=== PATIENT | female | born 1950 | race Caucasian/White ===

== ENCOUNTER 2016-11-09 14:08 | Inpatient (IN) | payer BC, OTHER ==
[~2016-11-09] VITALS: Ht 167.6 cm; Wt 91.0 kg
[~2016-11-09 14:08] MED LIST: DTR5 PO; GLC500 PO; HYDC25 PO
[2016-11-09] MEDS ORDERED: OXYCODONE HCL IR 5 MG TAB (IMMEDIATE RELEASE) PO STA ×2 (14:40→16:03)
--- NOTE | 2016-11-09 15:09 | DIAGNOSTIC IMAGING REPORT ---
RIGHT TIBIA AND FIBULA 2 VIEWS; RIGHT ANKLE 3 VIEWS CLINICAL HISTORY: Right ankle injury and pain. FINDINGS: AP and lateral views of the right tibia and fibula with AP, oblique, and lateral views of the right ankle are obtained. No prior studies are available for comparison at the time of dictation. The skeletal structures are osteopenic. A hinged right knee arthroplasty is in near anatomic alignment. No periprosthetic lucency is seen. There is a minimally distracted spiral fracture of the distal fibula. The fragments are distracted by approximately 2 mm. There is a horizontally oriented fracture through the medial malleolus. There is lateral dislocation of the talus at the tibiotalar joint. The joint space medially measures 6 mm. There is an associated ankle joint effusion, with significant soft tissue swelling around the ankle and in the lower calf. The proximal tibia and fibula are intact. There are dorsal and plantar calcaneal enthesophytes. Degenerative spurring is seen along the dorsal aspect of the tarsal bones. IMPRESSION: 1. Minimal distracted spiral fracture through the distal fibula. 2. There is a horizontally oriented fracture through the medial malleolus with lateral distraction of the talus at the tibiotalar joint. 3. Ankle joint effusion with surrounding soft tissue edema. 4. The proximal tibia and fibula are intact. Electronically signed by: Baudilio Fox M.D. 11/09/2016 3:07 PM Dictated Date/Time: 11/09/2016 3:03 PM
[2016-11-09] MEDS ORDERED: ASPI81TA28 PO (15:26)
[2016-11-09] MEDS ORDERED: HYDR25TA4 PO (15:26)
[2016-11-09] MEDS ORDERED: METF-383 PO (15:26)
[2016-11-09] MEDS ORDERED: GLIM1TAB2 PO (15:26)
--- NOTE | 2016-11-09 16:06 | EMERGENCY ROOM VISIT NOTE ---
ED Visit Note First contact with patient: 14:20 I have seen and examined this patient with Luz Mckenna and generally agree with the treatment plan as discussed. Current/Historical Medications Scheduled Aspirin (Aspirin Ec), 81 MG PO DAILY Glimepiride (Glimepiride), 1 MG PO DAILY Hydrochlorothiazide (Hctz), 25 MG PO DAILY Lisinopril (Zestril), 20 MG PO DAILY Metformin Hcl (Glucophage), 850 MG PO TID Allergies Coded Allergies: Codeine (Verified Adverse Reaction, Intermediate, Nausea/Upset Stomach, ) Vital Signs Date Time Temp Pulse Resp B/P Pulse Ox O2 Delivery O2 Flow Rate FiO2 11/09/16 14:23 36.8 86 18 184/86 96 Room Air Medications Administered Medications (Trade) Dose Ordered Sig/Jackie Route Start Time Stop Time Status Last Admin Dose Admin Oxycodone HCl (Roxicodone Immediate Rel Tab) 5 mg NOW STAT PO 11/09/16 14:40 11/09/16 14:41 DC 11/09/16 15:06 5 MG Departure Information Referrals India Gaston M.D. (PCP) Patient Instructions My [facility]
[2016-11-09] MEDS ORDERED: DiphenhydrAMINE HCL 50 MG/ML VIAL IV PRN (16:30)
[2016-11-09] MEDS ORDERED: ZOLPIDEM TARTRATE 5 MG TAB PO PRN (16:30)
--- NOTE | 2016-11-09 16:32 | EMERGENCY ROOM VISIT NOTE ---
History First contact with patient: 14:20 Chief Complaint: ANKLE PAIN Stated Complaint: FALL/ANKLE PAIN History of Present Illness The patient is a 66 year old female who presents to the Emergency Room via BLS with complaints of right ankle pain after a fall. The patient reports that she was walking up steps and tried to turn around to go back down the steps, when she tripped and fell, injuring her right ankle. She denies any other injuries and states she did not hit her head. She complains of pain only in the right ankle, which she rates a 6/10. She has not taken any medication for the pain. She is not able to bear weight on the ankle. She denies any previous injury to this ankle. She has had knee replacements performed by [facility]. She denies any numbness or weakness of the lower extremities. Review of Systems A complete 6 point review of systems was reviewed with the patient with pertinent positives and negatives as per history of present illness. All else were negative. Social History Smoking Status: Never Smoker Current/Historical Medications Scheduled Aspirin (Aspirin Ec), 81 MG PO DAILY Glimepiride (Glimepiride), 1 MG PO DAILY Hydrochlorothiazide (Hctz), 25 MG PO DAILY Lisinopril (Zestril), 20 MG PO DAILY Metformin Hcl (Glucophage), 850 MG PO TID Allergies Coded Allergies: Codeine (Verified Adverse Reaction, Intermediate, Nausea/Upset Stomach, ) Physical Exam Vital Signs Date Time Temp Pulse Resp B/P Pulse Ox O2 Delivery O2 Flow Rate FiO2 11/09/16 16:10 73 18 173/107 97 Room Air 11/09/16 14:23 36.8 86 18 184/86 96 Room Air Pain Rating (0-10): 7.0 Physical Exam VITALS: Vitals are noted on the nurse's note and reviewed by myself. Vital signs stable. GENERAL: This is a 66-year-old female, in no acute distress, nondiaphoretic, well-developed well-nourished. SKIN: Capillary reflex less than 2 seconds. HEART: Regular rate and rhythm without murmurs gallops or rubs. LUNGS: Clear to auscultation bilaterally without wheezes, rales or rhonchi. No retractions or accessory muscle use. MUSCULOSKELETAL: There is a moderate amount of edema and ecchymosis over the medial and lateral aspects of the right ankle. Ankle significantly tender to palpation. There is mild tenderness to palpation of the proximal tibia/fibula. Dorsalis pedis pulse is intact. Patient is able to move all toes without difficulty. No tenderness of the foot or knee. NEURO: Patient was alert and oriented to person place and time. Normal sensation to light and sharp touch. Medical Decision & Procedures ER Provider Diagnostic Interpretation: RIGHT TIBIA AND FIBULA 2 VIEWS; RIGHT ANKLE 3 VIEWS CLINICAL HISTORY: Right ankle injury and pain. FINDINGS: AP and lateral views of the right tibia and fibula with AP, oblique, and lateral views of the right ankle are obtained. No prior studies are available for comparison at the time of dictation. The skeletal structures are osteopenic. A hinged right knee arthroplasty is in near anatomic alignment. No periprosthetic lucency is seen. There is a minimally distracted spiral fracture of the distal fibula. The fragments are distracted by approximately 2 mm. There is a horizontally oriented fracture through the medial malleolus. There is lateral dislocation of the talus at the tibiotalar joint. The joint space medially measures 6 mm. There is an associated ankle joint effusion, with significant soft tissue swelling around the ankle and in the lower calf. The proximal tibia and fibula are intact. There are dorsal and plantar calcaneal enthesophytes. Degenerative spurring is seen along the dorsal aspect of the tarsal bones. IMPRESSION: 1. Minimal distracted spiral fracture through the distal fibula. 2. There is a horizontally oriented fracture through the medial malleolus with lateral distraction of the talus at the tibiotalar joint. 3. Ankle joint effusion with surrounding soft tissue edema. 4. The proximal tibia and fibula are intact. Medications Administered Medications (Trade) Dose Ordered Sig/Jackie Route Start Time Stop Time Status Last Admin Dose Admin Oxycodone HCl (Roxicodone Immediate Rel Tab) 5 mg NOW STAT PO 11/09/16 14:40 11/09/16 14:41 DC 11/09/16 15:06 5 MG Oxycodone HCl (Roxicodone Immediate Rel Tab) 5 mg NOW STAT PO 11/09/16 16:03 11/09/16 16:04 DC 11/09/16 16:10 5 MG Medical Decision Differential diagnosis includes ankle fracture, sprain, contusion, among others. The patient was evaluated as above. She was given 5 mg OxyIR for pain. X-ray of the right ankle as well as the right tibia/fibula were performed and revealed a right ankle fracture as described above. Case was discussed with Roberto Jason PA-C with [facility]. He recommended placing the patient in an Ortho-Glass splint. He did feel that she could be discharged home if she felt stable enough to do so. I spoke with the patient, who did not feel that she would be able to go home due to this injury. She was on a split- level house and states that her would not be able to help her walk around. Case was again discussed with Roberto, who agreed to evaluate the patient for admission. The patient was independently evaluated by Dr. Harris, ED attending physician , who agreed with my assessment and treatment plan. Impression Primary Impression: Ankle fracture Departure Information Referrals India Gaston M.D. (PCP) Patient Instructions My [facility] Problem Qualifiers Primary Impression: Ankle fracture Encounter type: initial encounter Fracture type: closed Laterality: right Qualified Codes: S82.891A - Other fracture of right lower leg, initial encounter for closed fracture
--- NOTE | 2016-11-09 16:38 | HISTORY & PHYSICAL EXAMINATION ---
DATE OF ADMISSION: 11/09/2016 REASON FOR ADMISSION: Right ankle fracture. HISTORY OF PRESENT ILLNESS: The patient is a 66-year-old white female who states that she was coming down some steps earlier in the day and ended up having her missed step with her right ankle and it went under her full weight and she fell. She had immediate pain in the right ankle and was unable to bear weight on it. She was brought to the Emergency Room where she was seen by the staff. X-rays were taken and it was found that she had a bimalleolar ankle fracture of the right ankle. The extremity was put in a posterior splint with a stirrup; however, the patient was having difficulty with pain and ambulation. After discussing with the family, their house has multiple stairs and is problematic for them to go home and wait for the fracture to be fixed later next week. We will now admit her for further orthopedic care and plan for ORIF tomorrow with Dr. Lagos. PAST MEDICAL HISTORY: Hypertension, diabetes mellitus type 2. Denies tuberculosis, hepatitis, COPD, and rheumatic fever. PAST SURGICAL HISTORY: She has had right and left knee total knee replacements in the past. FAMILY HISTORY: Question of CAD with the patient's father with possible [place]. SOCIAL HISTORY: She is . She does not use tobacco or alcohol. MEDICATIONS: Aspirin 81 mg p.o. daily, glimepiride 1 mg p.o. daily, hydrochlorothiazide 25 mg p.o. daily, lisinopril 20 mg p.o. daily, and metformin 850 mg p.o. t.i.d. ALLERGIES: CODEINE. REVIEW OF SYSTEMS: No recent fevers, chills, night sweats, unexplained weight loss or weight gain. No flu or cold-like symptoms. No increased cough or sputum production. No increased shortness of breath on exertion or at rest. No chest pain, chest pressure, irregular heartbeat. No abdominal pain and no nausea, vomiting or diarrhea. No hematemesis, melena, hematochezia. The patient has a history of urinary tract infections in the past with concurrent yeast infections due to antibiotic use, nothing recently. Denies any history of CVA, TIA, and seizure disorder. PHYSICAL EXAMINATION: VITAL SIGNS: On admission, temperature 36.8, pulse 86, respirations 18, BP 184/86, pulse ox 96 on room air. GENERAL: The patient is a well-developed, well-nourished white female who is alert and oriented x3 and in no acute distress, pleasant and cooperative. SKIN: Warm and dry. Turgor is good. HEENT: Head is normocephalic, atraumatic. There is no scleral icterus or injection. Nasal airway is patent. Oral mucosa is pink and moist. NECK: Supple. HEART: Regular rate and rhythm. LUNGS: Clear to auscultation. ABDOMEN: Soft, mildly obese and nontender. Bowel sounds are present and active x4. GENITALIA AND RECTAL: Not performed at this time. EXTREMITIES: On examination of the patient's right lower extremity, there were just about in the process of putting on a splint. At the time of my entering the room, she has some mild swelling of the right ankle with no open areas noted. No bleeding and is very tender over both the medial and lateral aspect of the ankle. She has good sensation in her toes and is able to move the toes quite well without any overt pain. The right knee has a well-healed scar from her previous TKA and is nontender on palpation. She is able to do a straight leg raise and is able to help raise her leg up to help then put the splint on. She has no pain in knee right now, no pain in the right hip. She denies discomfort in the left lower extremity and has good range of motion of left hip, knee and ankle. Upper extremities are essentially within normal limits with range of motion actively and passively and the distal pulses are equal bilaterally of the upper extremities. Denies neck pain on palpation. Denies any thoracic or low back pain. NEUROLOGIC: The patient is alert and oriented x3. Sensation is intact to the right lower extremity as is the left and the bilateral upper extremities. DIAGNOSIS: Bimalleolar ankle fracture, right ankle. PLAN: The patient will be added on to the operating room schedule tomorrow for ORIF of her right ankle. We will plan on consulting [facility] for preoperative medical clearance and postoperative medical coverage.
[2016-11-09 16:46] VITALS: O2SAT 97; Ht 167.6 cm; Wt 91.0 kg
[2016-11-09] MEDS ORDERED: GLUCAGON FOR INJ 1 MG VIAL SQ PRN (17:00)
[2016-11-09] MEDS ORDERED: GLUCOSE 10 TABS/TUBE PO PRN (17:00)
[2016-11-09] MEDS ORDERED: GLUCOSE 40% GEL 15 GM TUBE PO PRN (17:00)
[2016-11-09] MEDS ORDERED: DEXTROSE 50% 50 ML SYR IV PRN (17:00)
[2016-11-09 17:26] LABS: HEMATOCRIT 38.5 % (37-47); MEAN CELL VOLUME 85.2 fL (80-100); MEAN PLATELET VOLUME 10.1 fL (7.4-10.4); PLATELET COUNT 281 K/uL (130-400); RED BLOOD COUNT 4.52 M/uL (4.2-5.4); WHITE BLOOD COUNT 15.02 K/uL (4.8-10.8)
[2016-11-09 17:30] VITALS: BP 188/86; PULSE 70; TEMP 36.9; O2SAT 97
[2016-11-09 17:43] LABS: BUN/CREATININE RATIO 16.9 (10-20); CALCIUM 9.4 mg/dl (8.5-10.1); CREATININE 0.99 mg/dl (0.60-1.20); POTASSIUM 3.8 mmol/L (3.5-5.1)
[2016-11-09] MEDS ORDERED: METFORMIN HCL 850 MG TAB PO SCH (17:45)
[2016-11-09] MEDS ORDERED: HydrALAZINE HCL 20 MG/ML VIAL IV. PRN (19:00)
--- NOTE | 2016-11-09 19:27 | Medical Consult ---
Consultation Date of Consultation: Nov 09, 2016. Attending Physician: Faisal Lagos D.O. Reason for Consultation: Preop evaluation/Medical management History of Present Illness Patient is a pleasant 66 y/o female, with PMHx of HTN and DM, who presented to the ED this afternoon because of right ankle pain. Patient was coming down a set of stairs, missed the step, and fell onto her right ankle. X-ray of ankle shows bimalleolar right ankle fracture. Patient is scheduled to undergo ORIF to right ankle on 11/10. Currently, pain is well controlled. She is able to ambulate and walk up flights of stairs without any SOB. Patient denies any cardiac history, such as CAD, UT, or arrhythmias. Denies history of TIA/CVA or DVT/PE. Patient has underwent surgeries in the past without any complications. Patient denies any fever, chills, sweats, lightheadedness, dizziness, vision changes, CP, palpitations, edema, SOB, wheezing, cough, abdominal pain, nausea, vomiting, diarrhea, urinary symptoms, melena, numbness/tingling, weakness, anxiety/depression, active bleeding, or new skin discoloration/changes. Past Medical/Surgical History Medical: 1. HTN 2. DM Surgical: 1. Cholecystectomy 2. Bilateral total knee replacements Family History Father- [place] Social History Smoking Status: Never Smoker Alcohol Use: occasionally Marital Status: Housing Status: lives with family Allergies Coded Allergies: Codeine (Verified Adverse Reaction, Intermediate, Nausea/Upset Stomach, ) Current Inpatient Medications Current Inpatient Medications Medications (Trade) Dose Ordered Sig/Jackie Route Start Time Stop Time Status Last Admin Dose Admin Lisinopril (Zestril Tab) 20 mg DAILY PO 11/10/16 09:00 12/10/16 08:59 Metformin HCl (Glucophage Tab) 850 mg TIDM PO 11/09/16 17:45 12/09/16 17:59 Glimepiride (Amaryl Tab) 1 mg QDB PO 11/10/16 08:00 12/10/16 07:59 Morphine Sulfate (MoRPHine SULFATE INJ) 4 mg Q4HWA PRN IV 11/09/16 16:30 11/23/16 16:29 Insulin Aspart (novoLOG ASPART) SLIDING SCALE G... ACHS SC 11/09/16 21:00 12/09/16 20:59 Diphenhydramine HCl (Benadryl Inj) 25 mg Q8 PRN IV 11/09/16 16:30 12/09/16 16:29 Zolpidem Tartrate (Ambien Tab) 5 mg HSZ PRN PO 11/09/16 16:30 12/09/16 16:29 Ondansetron HCl (Zofran Inj) 4 mg Q6H PRN IV 11/09/16 16:30 12/09/16 16:29 Pantoprazole Sodium 40 mg 40 mg QAM PO 11/10/16 09:00 12/10/16 08:59 Sodium Chloride 1,000 ml @ 75 mls/hr [id number] IV 11/09/16 16:22 12/09/16 16:21 Cefazolin Sodium (Ancef 2000mg/60 ml D5W) 60 ml @ 100 mls/hr PREOP IV 11/10/16 06:00 11/10/16 16:00 Oxycodone HCl (Roxicodone Immediate Rel Tab) `1-2 tabs for pain 1 tab ... Q4HWA PRN PO 11/09/16 16:30 11/23/16 16:29 Glucose (Glucose 40% Gel) 15-30 GRAMS 15 GRAMS... UD PRN PO 11/09/16 17:00 12/09/16 16:59 Glucose (Glucose Chew Tab) 4-8 Tablets 4 Tabl... UD PRN PO 11/09/16 17:00 12/09/16 16:59 Dextrose (Dextrose 50% 50ML Syringe) 25-50ML OF 50% DW IV FOR... UD PRN IV 11/09/16 17:00 12/09/16 16:59 Glucagon (Glucagon Inj) 1 mg UD PRN SQ 11/09/16 17:00 12/09/16 16:59 Physical Exam Date Time Temp Pulse Resp B/P Pulse Ox O2 Delivery O2 Flow Rate FiO2 11/09/16 16:46 97 Room Air 11/09/16 16:10 73 18 173/107 97 Room Air 11/09/16 14:23 36.8 86 18 184/86 96 Room Air General Appearance: no apparent distress, + obese Head: normocephalic, atraumatic Eyes: normal inspection, PERRL ENT: hearing grossly normal Neck: supple Respiratory/Chest: lungs clear, normal breath sounds, no respiratory distress, no accessory muscle use Cardiovascular: regular rate, rhythm, normal peripheral pulses Abdomen/GI: normal bowel sounds, non tender, soft Back: normal inspection Extremities/Musculoskelatal: no calf tenderness, no pedal edema, + pertinent finding (right ankle wrapped in LENNY bandage ) Neurologic/Psych: alert, normal mood/affect, oriented x 3 Skin: normal color, warm/dry, no rash Laboratory Results Last 24 Hours Test 11/09/16 16:53 White Blood Count 15.02 K/uL Red Blood Count 4.52 M/uL Hemoglobin 13.1 g/dL Hematocrit 38.5 % Mean Corpuscular Volume 85.2 fL Mean Corpuscular Hemoglobin 29.0 pg Mean Corpuscular Hemoglobin Concent 34.0 g/dl RDW Standard Deviation 41.1 fL RDW Coefficient of Variation 13.3 % Platelet Count 281 K/uL Mean Platelet Volume 10.1 fL Sodium Level 136 mmol/L Potassium Level 3.8 mmol/L Chloride Level 99 mmol/L Carbon Dioxide Level 27 mmol/L Anion Gap 10.0 mmol/L Blood Urea Nitrogen 17 mg/dl Creatinine 0.99 mg/dl Est Creatinine Clear Calc Drug Dose 63.5 ml/min Estimated GFR () 68.8 Estimated GFR (Non- 59.4 BUN/Creatinine Ratio 16.9 Random Glucose 203 mg/dl Calcium Level 9.4 mg/dl Assessment & Plan 66 y/o female, with PMHx of HTN and DM, with bimalleolar right ankle fracture, consulted by orthopedics for preop evaluation/medical management. Bimalleolar ankle fracture, with ORIF scheduled for 11/10: - Pain management, DVT prophylaxis, and PT/OT will be as per primary team - Follow PRP and CBC - Leukocytosis of 15.02, likely secondary to ankle fracture. No s/s of infection. Continue to follow. - EKG unremarkable - CXR reviewed - U/A pending HTN: - Continue Lisinopril 20 mg PO daily and HCTZ 25 mg PO daily- hold postop pending repeat PRP to assess kidney function. - Per patient, BP usually runs around ~120/80's - Add Hydralazine 10 mg IV PRN for SBP >170 or DBP >100, elevated BP likely secondary to pain/stress of fracture. Continue to monitor. DM: - Hold Metformin and Glimepiride - BSG ACHS - Sliding insulin scale - Last ha1c checked by PCP ~1-2 weeks, 9.0 DVT prophylaxis: - As per primary team Code Status: - LEVEL I, FULL Dispo: - Discharge as per primary team Patient is OK from medical standpoint for procedure on 11/10. Thank you for this consultation. We will continue to follow throughout hospital stay.
[2016-11-09] MEDS: SODIUM CHLORIDE 0.9% 1000ML 1,000 ML IV SCH (19:46)
[2016-11-09] MEDS: OXYCODONE HCL IR 5 MG TAB (IMMEDIATE RELEASE) PO PRN (20:51)
[2016-11-09] MEDS ORDERED: INSULIN ASPART 100 UNITS/ML 3 ML PEN SC SCH (21:00)
--- NOTE | 2016-11-09 21:09 | DIAGNOSTIC IMAGING REPORT ---
CHEST 2 VIEWS ROUTINE HISTORY: PRE OP COMPARISON: Chest 05/28/2007. FINDINGS: The lungs are clear. Cardiac silhouette is normal in size. No pleural effusions. No pneumothorax. IMPRESSION: No acute process. Electronically signed by: Niraj Rondon M.D. 11/09/2016 9:08 PM Dictated Date/Time: 11/09/2016 9:07 PM
[2016-11-09 21:28] LABS: MANUAL MICROSCOPIC REQUIRED? NO; REVIEW REQ? NO; URINE APPEARANCE CLOUDY (CLEAR); URINE BILIRUBIN NEG (NEG); URINE COLOR YELLOW; URINE NITRITE POS (NEG); URINE PH 6.5 (4.5-7.5); UROBILINOGEN POS (NEG)
[2016-11-09] MEDS ORDERED: PNEUMOCOCCAL POLYSACCHARIDES 25 MCG/0.5 ML VIAL/SYR IM. ONE (21:30)
[2016-11-09] MEDS ORDERED: PNEUMOCOCCAL ADMINISTRATION CHARGE ONE (21:30)
[2016-11-09] MEDS: ONDANSETRON INJ 2 MG/ML 2 ML VIAL IV PRN (21:41)
[2016-11-09] MEDS ORDERED: LISI-725 PO (23:01)
[2016-11-09 23:20] VITALS: BP 159/81; PULSE 73; TEMP 36.8; O2SAT 96
[2016-11-09] MEDS: MoRPHine SULFATE 4 MG/ML 1 ML CARP\\VIAL IV PRN (23:51)
[2016-11-10] VITALS (8 sets, daily range): BP systolic 131–159; BP diastolic 63–83; PULSE 72–85; TEMP 36.5–37.1; O2SAT 94–99
[2016-11-10] MEDS ORDERED: NURSING VERBAL MED ORDER ONE (04:45)
[2016-11-10] MEDS ORDERED: CEFAZOLIN 2000 MG/60 ML D5W 60 ML IV SCH (06:00)
[2016-11-10] MEDS: SODIUM CHLORIDE 0.9% 1000ML 1,000 ML IV SCH ×2 (06:26→19:02)
[2016-11-10] MEDS: INSULIN ASPART 100 UNITS/ML 3 ML PEN SC SCH ×3 (06:30→18:51)
[2016-11-10 06:42] LABS: HEMATOCRIT 36.5 % (37-47); MEAN CELL VOLUME 85.9 fL (80-100); MEAN CORPUSCULAR HEMOGLOBIN 29.4 pg (25-34); MEAN CORPUSCULAR HGB CONC 34.2 g/dl (32-36); MEAN PLATELET VOLUME 9.8 fL (7.4-10.4); PLATELET COUNT 230 K/uL (130-400); RED BLOOD COUNT 4.25 M/uL (4.2-5.4); WHITE BLOOD COUNT 8.32 K/uL (4.8-10.8)
[2016-11-10 07:06] LABS: BUN/CREATININE RATIO 15.2 (10-20); CALCIUM 9.2 mg/dl (8.5-10.1); CREATININE 0.9 mg/dl (0.60-1.20); POTASSIUM 4.2 mmol/L (3.5-5.1)
[2016-11-10 07:07] LABS: PROTHROMBIN TIME (PATIENT) 10.9 SECONDS (9.0-12.0)
[2016-11-10] MEDS: MoRPHine SULFATE 4 MG/ML 1 ML CARP\\VIAL IV PRN ×2 (07:43→18:46)
[2016-11-10] MEDS: ONDANSETRON INJ 2 MG/ML 2 ML VIAL IV PRN ×2 (07:50→19:15)
[2016-11-10] MEDS ORDERED: GLIMEPIRIDE 2 MG TAB PO SCH (08:00)
[2016-11-10] MEDS ORDERED: PROPOFOL IV EMULSION 10 MG/ML 20 ML VIAL IV ONE (08:19)
[2016-11-10] MEDS ORDERED: ONDANSETRON INJ 2 MG/ML 2 ML VIAL ONE (08:19)
[2016-11-10] MEDS ORDERED: MIDAZOLAM HCL 1 MG/ML 2ML VIAL ONE (08:19)
[2016-11-10] MEDS ORDERED: LIDOCAINE HCL 2% 2 ML VIAL (20MG/ML) ONE (08:19)
[2016-11-10] MEDS ORDERED: FENTANYL CITRATE INJ 50 MCG/1 ML 2 ML VIAL ONE ×2 (08:19→11:36)
[2016-11-10] MEDS: PANTOprazole SOD 40 MG TAB PO SCH (08:26)
[2016-11-10] MEDS: LISINOPRIL 20 MG TAB PO SCH (08:26)
[2016-11-10] MEDS ORDERED: ONDANSETRON INJ 2 MG/ML 2 ML VIAL IV PRN ×2 (09:15→13:15)
[2016-11-10] MEDS ORDERED: ATROPINE SULFATE 0.1 MG/ML 5ML SYR IV PRN (09:15)
[2016-11-10] MEDS ORDERED: HYDROmorphone INJ 1 MG/ML SYR IV PRN (09:15)
[2016-11-10] MEDS ORDERED: EpHEDrine SULFATE INJ 50 MG/ML AMP IV PRN (09:15)
[2016-11-10] MEDS ORDERED: BUPIVACAINE 0.25% 30 ML VIAL ONE (09:25)
--- NOTE | 2016-11-10 10:23 | History & Physical Bridge Note ---
H&P Re-Evaluation Bridge Note: I have examined the patient, reviewed the History & Physical and in the interval since the performance of the History & Physical I have noted the following changes of clinical significance: No changes noted
[2016-11-10] MEDS ORDERED: MoRPHine SULFATE 2 MG/ML CARP ONE ×2 (10:52→11:35)
[2016-11-10] MEDS ORDERED: CEFAZOLIN SOD 1 GM VIAL ONE (11:17)
--- NOTE | 2016-11-10 12:32 | DIAGNOSTIC IMAGING REPORT ---
INTRAOPERATIVE RIGHT ANKLE 2 VIEWS CLINICAL HISTORY: Fracture COMPARISON STUDY: 11/09/2016 FINDINGS: 39 seconds of fluoroscopic time was utilized. 2 intraoperative fluoroscopic spot images are provided for interpretation. The distal fibular fracture has been fixated with a lateral metallic plate and multiple screws. The medial malleolar fracture has been fixated with 2 screws. The ankle mortise appears intact. IMPRESSION: Interval reduction and internal fixation of the patient's bimalleolar fracture. Electronically signed by: River Mcnulty M.D. 11/10/2016 12:31 PM Dictated Date/Time: 11/10/2016 12:30 PM
--- NOTE | 2016-11-10 12:59 | [facility] Post Operative Brief Note ---
Immediate Operative Summary Operative Date Nov 10, 2016. Pre-Operative Diagnosis Displaced Bimalleolar ankle fracture, right ankle Post-Operative Diagnosis Displaced Bimalleolar ankle fracture, right ankle Procedure(s) Performed Right Open Reduction Internal Fixation Displaced Bimalleolar Ankle Fracture Surgeon Dr. Faisal Lagos Mica Paster Surgeon(s) Tran Robert PA-C Estimated Blood Loss 20ML Findings See Dict Specimens none per surgeon Drains None Anesthesia GLMA w/ popliteal block Complication(s) None Disposition Recovery Room / PACU
--- NOTE | 2016-11-10 13:01 | Anesthesiology Progress Note ---
Anesthesia Post Op Note Date & Time Nov 10, 2016 at 13:01 Vital Signs Pain Intensity: 8.0 Vital Signs Past 12 Hours Date Time Temp Pulse Resp B/P Pulse Ox O2 Delivery O2 Flow Rate FiO2 11/10/16 08:39 Room Air 11/10/16 07:01 37.0 75 16 156/83 95 Room Air Notes Mental Status: alert / awake / arousable, participated in evaluation Pt Amnestic to Procedure: Yes Nausea / Vomiting: adequately controlled Pain: adequately controlled Airway Patency, RR, SpO2: stable & adequate BP & HR: stable & adequate Hydration State: stable & adequate Anesthetic Complications: no major complications apparent
[2016-11-10] MEDS ORDERED: MAGNESIUM HYDROXIDE SUSP 30 ML UDC PO PRN (13:15)
[2016-11-10] MEDS ORDERED: ALUMINUM/MAGNESIUM/SIMETH (MAALOX MAX) 30 ML UDC PO PRN (13:15)
--- NOTE | 2016-11-10 13:42 | OPERATIVE REPORT ---
DATE OF OPERATION: 11/10/2016 PREOPERATIVE DIAGNOSES: Right displaced bimalleolar ankle fracture. POSTOPERATIVE DIAGNOSIS: Same. PROCEDURE: Open reduction internal fixation right displaced bimalleolar ankle fracture using Synthes periarticular fibular plate and 4.0 cannulated screws. SURGEON: Dr. Lagos. GAS TORCH SOLDERER: Tran Soto PA-C who was present for patient positioning, sterile prep and drape, management of retractors and instruments. He was present through the critical portions of the case including wound closure, application of sterile dressing and transport of the patient to recovery. ANESTHESIA: General LMA with popliteal block. SPECIMENS: None. DRAINS: None. COMPLICATIONS: None. BLOOD LOSS: 20 mL. PERTINENT HISTORY: This is a 66-year-old female who sustained a falling twisting injury to her right ankle. She was unable to ambulate, had pain, swelling, transported to [facility]. Radiographs were obtained noting a displaced bimalleolar ankle fracture of the right ankle. The patient was then admitted to the hospital, obtained medical optimization and the patient was then scheduled for surgery as indicated. All potential risks, benefits, complications, alternatives, rehab, potential for incomplete relief of symptoms, need for further surgery, DVT, PE, , persistent pain, swelling, scarring, weakness, neurovascular injury, wound complications, bone fracture, hardware failure, nonunion, malunion were discussed with the patient. The patient decided to proceed with the procedure as indicated. OPERATION AND FINDINGS: PROCEDURE: The patient was taken to the operative suite after popliteal nerve block was administered. The patient was placed supine on the operating room table. After review of the consent and identification of proper operative site, the patient was anesthetized, LMA was placed. Tourniquet was placed high on the right thigh over cast padding. Right lower extremity was then sterilely prepped and draped in usual fashion, elevated and exsanguinated with an Esmarch bandage and the tourniquet was inflated to 325 mmHg. Next, a 15 blade scalpel was used to make an incision along the lateral malleolus of the ankle. The incision was deepened through subcutaneous tissue. Meticulous hemostasis was achieved with electrocautery. Full thickness skin flaps were developed. The fracture hematoma was identified and evacuated and irrigated until clear and then the fracture was then carefully opened with a small dental pick to debride the fracture of any clot to improve bony reduction which was then performed with bone forceps x2 using gentle traction. Next, a single lag screw was placed from anterior to posterior, followed by placement of a Synthes periarticular distal fibula plate which was then firmly affixed to the fibula using multiple locking bone screws. Next, this was performed under live fluoroscopic assistance. Next, the medial malleolar fracture was then addressed using a 15 blade scalpel. Incision was made in a curvilinear fashion over the anterior aspect of the medial malleolus. The incision was carefully deepened through subcutaneous tissue. Meticulous hemostasis was achieved with electrocautery. Full thickness skin flaps were developed. Care was taken to identify the saphenous vein, retracted, and protected. Next, the fracture was then carefully irrigated and gently debrided and reduced in near anatomic position using a small dental pick. Next, the 4.0 cannulated screws x2 were placed under live fluoroscopic assistance using direct visualization. Next, the wound was copiously irrigated with sterile normal saline. Guide pins were removed from the medial malleolus. Final x-rays obtained in AP and lateral projections and then final irrigation was performed on the lateral side as well. Next, the deep soft tissue was closed over the plate laterally with 2-0 Vicryl. The skin incisions were then closed using buried interrupted 3-0 Vicryl suture in the dermis and then 4-0 nylon sutures in the superficial skin both medial and lateral. Next, a sterile compressive dressing was applied overwrapped with a bulky John Rapp splint with the ankle held in neutral dorsiflexion. The tourniquet was released. The patient was awakened and taken to recovery in stable condition. I attest to the content of the Intraoperative Record and any orders documented therein. Any exceptions are noted below. JEOVANNY
--- NOTE | 2016-11-10 14:09 | DIAGNOSTIC IMAGING REPORT ---
RIGHT ANKLE 2 VIEWS CLINICAL HISTORY: Ankle fracture. Postoperative study. COMPARISON: 11/09/2016 DISCUSSION: There is a casted internally fixated bimalleolar fracture. The medial malleolar fragment is laterally displaced x 2 mm. The fine bony details obscured by overlying plaster cast. The distal fibular fracture is fixated with a lateral metallic plate and multiple screws. 2 screws fixate the medial malleolar fracture. IMPRESSION: Casted internally fixated bimalleolar fracture. Electronically signed by: River Mcnulty M.D. 11/10/2016 2:08 PM Dictated Date/Time: 11/10/2016 2:06 PM
--- NOTE | 2016-11-10 15:06 | Progress Note ---
Subjective Date of Service: Nov 10, 2016. Subjective Pt evaluation today including: conversation w/ patient, conversation w/ family , physical exam, chart review, lab review, review of studies, review of inpatient medication list Problem List Medical Problems: (1) Ankle fracture Status: Acute Review of Systems Constitutional: No chills, No fever Respiratory: No cough, No dyspnea on exertion, No shortness of breath, No sputum, No wheezing Cardiac: No chest pain, No orthopnea Abdomen: No diarrhea, No nausea, No pain, No vomiting Musculoskeletal: + joint pain, No muscle pain Female : No dysuria, No urinary frequency Objective Vital Signs Date Time Temp Pulse Resp B/P Pulse Ox O2 Delivery O2 Flow Rate FiO2 11/10/16 14:58 76 16 159/83 98 Nasal Cannula 2.0 11/10/16 14:26 80 16 131/74 97 Nasal Cannula 2.0 11/10/16 14:17 94 Nasal Cannula 2.0 11/10/16 13:55 85 16 186/80 99 Nasal Cannula 2 11/10/16 13:45 89 16 186/85 98 Nasal Cannula 2 11/10/16 13:35 88 18 185/87 98 Nasal Cannula 2 11/10/16 13:25 36.4 90 18 180/80 98 Nasal Cannula 2 11/10/16 13:15 92 16 187/78 100 Nasal Cannula 2 11/10/16 13:05 85 16 181/95 100 Mask 10 11/10/16 12:55 36.9 92 18 187/80 100 Mask 10 11/10/16 08:39 Room Air 11/10/16 07:01 37.0 75 16 156/83 95 Room Air 11/09/16 23:50 Room Air 11/09/16 23:20 36.8 73 20 159/81 96 Room Air 11/09/16 17:30 97 Room Air 11/09/16 17:30 36.9 70 18 188/86 97 Room Air 11/09/16 16:46 97 Room Air 11/09/16 16:10 73 18 173/107 97 Room Air Physical Exam General Appearance: WD/WN, + mild distress Neck: supple, no adenopathy Respiratory/Chest: chest non-tender, lungs clear, normal breath sounds Cardiovascular: no edema, no gallop Abdomen: non tender, soft Neurologic/Psychiatric: alert, oriented x 3 Laboratory Results Last 24 Hours Test 11/09/16 16:53 11/09/16 19:40 11/09/16 21:05 11/10/16 06:07 White Blood Count 15.02 K/uL Red Blood Count 4.52 M/uL Hemoglobin 13.1 g/dL Hematocrit 38.5 % Mean Corpuscular Volume 85.2 fL Mean Corpuscular Hemoglobin 29.0 pg Mean Corpuscular Hemoglobin Concent 34.0 g/dl RDW Standard Deviation 41.1 fL RDW Coefficient of Variation 13.3 % Platelet Count 281 K/uL Mean Platelet Volume 10.1 fL Sodium Level 136 mmol/L Potassium Level 3.8 mmol/L Chloride Level 99 mmol/L Carbon Dioxide Level 27 mmol/L Anion Gap 10.0 mmol/L Blood Urea Nitrogen 17 mg/dl Creatinine 0.99 mg/dl Est Creatinine Clear Calc Drug Dose 63.5 ml/min Estimated GFR () 68.8 Estimated GFR (Non- 59.4 BUN/Creatinine Ratio 16.9 Random Glucose 203 mg/dl Calcium Level 9.4 mg/dl Bedside Glucose 201 mg/dl 167 mg/dl Urine Color YELLOW Urine Appearance CLOUDY Urine pH 6.5 Urine Specific [place] 1.020 Urine Protein NEG Urine Glucose (UA) 1+ Urine Ketones NEG Urine Occult Blood NEG Urine Nitrite POS Urine Bilirubin NEG Urine Urobilinogen POS Urine Leukocyte Esterase NEG Urine WBC (Auto) 1-5 /hpf Urine RBC (Auto) 0-4 /hpf Urine Hyaline Casts (Auto) 0 /lpf Urine Epithelial Cells (Auto) 10-20 /lpf Urine Bacteria (Auto) 4+ Test 11/10/16 06:24 11/10/16 13:11 White Blood Count 8.32 K/uL Red Blood Count 4.25 M/uL Hemoglobin 12.5 g/dL Hematocrit 36.5 % Mean Corpuscular Volume 85.9 fL Mean Corpuscular Hemoglobin 29.4 pg Mean Corpuscular Hemoglobin Concent 34.2 g/dl RDW Standard Deviation 42.1 fL RDW Coefficient of Variation 13.4 % Platelet Count 230 K/uL Mean Platelet Volume 9.8 fL Prothrombin Time 10.9 SECONDS Prothromb Time International Ratio 1.0 Sodium Level 137 mmol/L Potassium Level 4.2 mmol/L Chloride Level 102 mmol/L Carbon Dioxide Level 26 mmol/L Anion Gap 9.0 mmol/L Blood Urea Nitrogen 14 mg/dl Creatinine 0.90 mg/dl Est Creatinine Clear Calc Drug Dose 69.8 ml/min Estimated GFR () 77.2 Estimated GFR (Non- 66.6 BUN/Creatinine Ratio 15.2 Random Glucose 173 mg/dl Calcium Level 9.2 mg/dl Bedside Glucose 160 mg/dl Assessment and Plan 66 y/o female, with PMHx of HTN and DM, with bimalleolar right ankle fracture, consulted by orthopedics for preop evaluation/medical management. Bimalleolar ankle fracture, with ORIF scheduled for 11/10: - Pain management, DVT prophylaxis, and PT/OT will be as per primary team - Follow PRP and CBC - Leukocytosis of 15.02, likely secondary to ankle fracture. No s/s of infection. Continue to follow. - EKG unremarkable - CXR reviewed - U/A pending HTN: - Continue Lisinopril 20 mg PO daily and HCTZ 25 mg PO daily- hold postop pending repeat PRP to assess kidney function. - Per patient, BP usually runs around ~120/80's - Add Hydralazine 10 mg IV PRN for SBP >170 or DBP >100, elevated BP likely secondary to pain/stress of fracture. Continue to monitor. DM: - Hold Metformin and Glimepiride - BSG ACHS - Sliding insulin scale - Last ha1c checked by PCP ~1-2 weeks, 9.0 DVT prophylaxis: - As per primary team Code Status: - LEVEL I, FULL Dispo: - Discharge as per primary team
[2016-11-10] MEDS: OXYCODONE HCL IR 5 MG TAB (IMMEDIATE RELEASE) PO PRN ×2 (16:56→23:58)
[2016-11-10] MEDS: CEFAZOLIN IV 2,000 MG in DEXTROSE 5% 50ML 50 ML IV SCH (18:45)
[2016-11-10] MEDS: DOCUSATE SODIUM 100 MG CAP PO SCH (20:38)
[2016-11-11] MEDS: INSULIN ASPART 100 UNITS/ML 3 ML PEN SC SCH ×5 (00:01→21:11)
[2016-11-11] MEDS: CEFAZOLIN IV 2,000 MG in DEXTROSE 5% 50ML 50 ML IV SCH (03:06)
[2016-11-11 04:18] VITALS: BP 121/70; PULSE 87; TEMP 37.3; O2SAT 96
[2016-11-11] MEDS ORDERED: NURSING VERBAL MED ORDER ONE ×3 (04:30→23:15)
[2016-11-11 05:48] LABS: MEAN CELL VOLUME 85.1 fL (80-100); MEAN CORPUSCULAR HEMOGLOBIN 29.3 pg (25-34); MEAN CORPUSCULAR HGB CONC 34.4 g/dl (32-36); PLATELET COUNT 179 K/uL (130-400); RED BLOOD COUNT 3.76 M/uL (4.2-5.4); WHITE BLOOD COUNT 9.98 K/uL (4.8-10.8)
[2016-11-11 05:59] LABS: INR 1.1 (0.9-1.1); PROTHROMBIN TIME (PATIENT) 11.4 SECONDS (9.0-12.0)
[2016-11-11] MEDS: SODIUM CHLORIDE 0.9% 1000ML 1,000 ML IV SCH ×2 (06:09→21:42)
[2016-11-11] MEDS: OXYCODONE HCL IR 5 MG TAB (IMMEDIATE RELEASE) PO PRN ×5 (06:09→23:19)
[2016-11-11 06:18] LABS: BUN/CREATININE RATIO 11.9 (10-20); CALCIUM 8.5 mg/dl (8.5-10.1); CREATININE 0.91 mg/dl (0.60-1.20); POTASSIUM 4.1 mmol/L (3.5-5.1)
[2016-11-11 07:27] VITALS: BP 135/83; PULSE 79; TEMP 37.2; O2SAT 98
[2016-11-11] MEDS: LISINOPRIL 20 MG TAB PO SCH (08:25)
[2016-11-11] MEDS: MULTIVITAMIN TAB PO SCH (08:26)
[2016-11-11] MEDS: ASPIRIN 81 MG ECTAB PO SCH (08:26)
[2016-11-11] MEDS: DOCUSATE SODIUM 100 MG CAP PO SCH ×2 (08:26→19:52)
[2016-11-11] MEDS: PANTOprazole SOD 40 MG TAB PO SCH (08:26)
--- NOTE | 2016-11-11 09:40 | Orthopedic Progress Note ---
Orthopedic Progress Note Date of Service Nov 11, 2016. Subjective Post OP Day: 1 Reports: feeling well, pain controlled w PO medications, Denies: SOB, calf pain , chest pain, light headedness, nausea / vomiting Objective calves soft nontender, splint C/D/I, capillary refill less than 2 sec., A&O x3 Date Time Temp Pulse Resp B/P Pulse Ox O2 Delivery O2 Flow Rate FiO2 11/11/16 07:27 37.2 79 16 135/83 98 Room Air 11/11/16 04:18 37.3 87 18 121/70 96 Room Air 11/11/16 00:00 Room Air 11/10/16 23:50 36.7 85 18 132/75 96 Room Air 11/10/16 20:06 37.1 84 16 141/63 94 Room Air 11/10/16 17:05 36.5 72 16 150/83 99 Nasal Cannula 2.0 11/10/16 15:59 76 16 148/74 98 Nasal Cannula 2.0 11/10/16 14:58 76 16 159/83 98 Nasal Cannula 2.0 11/10/16 14:26 80 16 131/74 97 Nasal Cannula 2.0 11/10/16 14:17 94 Nasal Cannula 2.0 11/10/16 13:55 85 16 186/80 99 Nasal Cannula 2 11/10/16 13:45 89 16 186/85 98 Nasal Cannula 2 11/10/16 13:35 88 18 185/87 98 Nasal Cannula 2 11/10/16 13:25 36.4 90 18 180/80 98 Nasal Cannula 2 11/10/16 13:15 92 16 187/78 100 Nasal Cannula 2 11/10/16 13:05 85 16 181/95 100 Mask 10 11/10/16 12:55 36.9 92 18 187/80 100 Mask 10 Laboratory Results 24 Hours: Test 11/11/16 05:40 Hematocrit 32.0 % Hemoglobin 11.0 g/dL Prothromb Time International Ratio 1.1 Prothrombin Time 11.4 SECONDS Assessment & Plan Assessment: POD #1 right ankle ORIF bimalleolar fracture Plan: Patient is unsure if she can go home due to some steps to get into the house and at back surgery and cannot help her. She would like to try and go to [facility] for some rehab before going home. Inhouse Planning Pain Management: PO Tylenol, Oxy IR DVT Prophylaxis: TEDs, SCDs, ASA Discharge Planning Discharge Planning: uncertain
[2016-11-11 10:10] VITALS: BP 155/71
[2016-11-11 11:18] VITALS: BP 120/55; PULSE 80; TEMP 36.8; O2SAT 97
[2016-11-11 15:01] VITALS: BP 137/79; PULSE 76; TEMP 36.8; O2SAT 96
[2016-11-11] MEDS ORDERED: PANTOprazole SOD 40 MG TAB PO ONE (19:30)
[2016-11-11] MEDS ORDERED: CLOTRIMAZOLE 10 MG TROCHE MT ONE (19:30)
[2016-11-11] MEDS: IBUPROFEN 200 MG TAB PO PRN (19:53)
[2016-11-11 22:59] VITALS: BP 116/61; PULSE 78; TEMP 37; O2SAT 96
[2016-11-11] MEDS ORDERED: CLOTRIMAZOLE 10 MG TROCHE MT SCH (23:00)
[2016-11-12] MEDS: IBUPROFEN 200 MG TAB PO PRN ×2 (04:10→15:05)
[2016-11-12 05:57] LABS: INR 1.1 (0.9-1.1); PROTHROMBIN TIME (PATIENT) 11.8 SECONDS (9.0-12.0)
[2016-11-12 06:08] LABS: HEMATOCRIT 33.4 % (37-47); MEAN CELL VOLUME 86.3 fL (80-100); MEAN CORPUSCULAR HEMOGLOBIN 29.2 pg (25-34); MEAN CORPUSCULAR HGB CONC 33.8 g/dl (32-36); MEAN PLATELET VOLUME 9.7 fL (7.4-10.4); PLATELET COUNT 196 K/uL (130-400); RED BLOOD COUNT 3.87 M/uL (4.2-5.4); WHITE BLOOD COUNT 8.31 K/uL (4.8-10.8)
[2016-11-12 06:16] LABS: CALCIUM 8.5 mg/dl (8.5-10.1); CREATININE 0.79 mg/dl (0.60-1.20); POTASSIUM 3.9 mmol/L (3.5-5.1)
[2016-11-12 07:22] VITALS: BP 135/62; PULSE 78; TEMP 36.7; O2SAT 96
[2016-11-12] MEDS: OXYCODONE HCL IR 5 MG TAB (IMMEDIATE RELEASE) PO PRN ×2 (07:24→18:07)
--- NOTE | 2016-11-12 07:27 | Orthopedic Progress Note ---
Orthopedic Progress Note Date of Service Nov 12, 2016. Subjective Post OP Day: 2 Reports: feeling well, pain controlled w PO medications, Denies: SOB, chest pain , light headedness, nausea / vomiting Objective N/V intact, splint C/D/I, dressing C/D/I, A&O x3, toes mobile Date Time Temp Pulse Resp B/P Pulse Ox O2 Delivery O2 Flow Rate FiO2 11/12/16 07:22 36.7 78 18 135/62 96 Room Air 11/11/16 23:15 Room Air 11/11/16 22:59 37.0 78 16 116/61 96 Room Air 11/11/16 15:51 Room Air 11/11/16 15:01 36.8 76 16 137/79 96 Room Air 11/11/16 11:18 36.8 80 16 120/55 97 Room Air 11/11/16 09:52 Room Air 11/11/16 07:27 37.2 79 16 135/83 98 Room Air Laboratory Results 24 Hours: Test 11/12/16 05:26 Hematocrit 33.4 % Hemoglobin 11.3 g/dL Prothromb Time International Ratio 1.1 Prothrombin Time 11.8 SECONDS Assessment & Plan Assessment: POD #2 right ankle ORIF bimalleolar fracture Plan: Plan for D/C today either to [facility] or [facility], depending on insurance approval. Patient is unsure if she can go home due to some steps to get into the house and at back surgery and cannot help her. She would like to try and go to [facility] for some rehab before going home. Inhouse Planning Pain Management: PO Tylenol, Oxy IR DVT Prophylaxis: TEDs, SCDs, ASA Discharge Planning Discharge Planning: uncertain ([facility] vs. [facility])
[2016-11-12] MEDS ORDERED: ONDA8TAB6 PO (07:28)
[2016-11-12] MEDS ORDERED: ASPI81TA28 PO (07:28)
[2016-11-12] MEDS ORDERED: RXC5 PO (07:28)
--- NOTE | 2016-11-12 07:30 | Discharge Instructions ---
Discharge Instructions Admission Reason for Admission: Bimalleolar Fracture Of Right Ankle Discharge Discharge Diagnosis / Problem: Right bimalleolar ankle fracture Discharge Goals Goal(s): Decrease discomfort Activity Recommendations Activity Level: OOB In Chair Therapies: Physical Therapy, Weight Bearing Status (Nonweightbearing on the right lower extremity), Occupational Therapy Weightbearing Status: Right non-weightbearing Lifting Limitations: until after follow-up appointment Exercise/Sports Limitations: until after follow-up appointment Shower/Bathe: keep incision dry (Keep dressing clean and dry. Dressing in place until follow up in 2 weeks.) . Additional Information Patient informed of condition: Yes Advance Directives: Yes DNR: No Level of Care: Acute Rehab Communicable Disease: No Prognosis: Stable Instructions / Follow-Up Instructions / Follow-Up ACTIVITY RECOMMENDATIONS: Limitations: No weight bearing to affected limb at all times. SPECIAL CARE INSTRUCTIONS: * Some drainage onto the dressing is normal and is no cause for alarm. * Some swelling is natural especially after walking. * When resting, keep your foot elevated above the level of your heart. * Call [facility] if you notice: -Increased drainage -Fever over 101 degrees F -Severe constant pain BANDAGE: * Leave bandage/cast in place unless otherwise directed. * Keep bandage/cast dry at all times. FOLLOW UP VISIT WITH DR. BHARDWAJ If appointment is not already scheduled: Please call [facility] after you get home today to schedule a follow-up appointment for [address] Bhardwaj at . Current Hospital Diet Patient's current hospital diet: Diabetes Type 2 Diet Discharge Diet Recommended Diet: Diabetes Type 2 Diet Procedures Procedures Performed: Right Open Reduction Internal Fixation Displaced Bimalleolar Ankle Fracture Pending Studies Studies pending at discharge: no Medical Emergencies . Who to Call and When: Medical Emergencies: If at any time you feel your situation is an emergency, please call 1 immediately. . Non-Emergent Contact Non-Emergency issues call your: Surgeon Call Non-Emergent contact if: temperature is above 101, your pain is not controlled, your pain is worsening, wound has increased pain . . "Provider Documentation" section prepared by Yonis Gipson. Core Measure Problem Core Measures: None
[2016-11-12] MEDS: ASPIRIN 81 MG ECTAB PO SCH (08:26)
[2016-11-12] MEDS: DOCUSATE SODIUM 100 MG CAP PO SCH (08:26)
[2016-11-12] MEDS: PANTOprazole SOD 40 MG TAB PO SCH (08:27)
[2016-11-12] MEDS: MULTIVITAMIN TAB PO SCH (08:28)
--- NOTE | 2016-11-12 08:28 | Anesthesiology Progress Note ---
Anesthesia Post Op Note Date & Time Nov 12, 2016 at 08:27 Vital Signs Pain Intensity: 5.0 Vital Signs Past 12 Hours Date Time Temp Pulse Resp B/P Pulse Ox O2 Delivery O2 Flow Rate FiO2 11/12/16 07:22 36.7 78 18 135/62 96 Room Air 11/12/16 07:15 Room Air 11/11/16 23:15 Room Air 11/11/16 22:59 37.0 78 16 116/61 96 Room Air Notes Mental Status: alert / awake / arousable, participated in evaluation Pt Amnestic to Procedure: Yes Nausea / Vomiting: adequately controlled Pain: adequately controlled Airway Patency, RR, SpO2: stable & adequate BP & HR: stable & adequate Hydration State: stable & adequate Anesthetic Complications: no major complications apparent
[2016-11-12] MEDS: LISINOPRIL 20 MG TAB PO SCH (08:29)
[2016-11-12] MEDS: INSULIN ASPART 100 UNITS/ML 3 ML PEN SC SCH ×3 (08:31→18:11)
[2016-11-12] MEDS ORDERED: PANTOprazole SOD 40 MG TAB PO SCH (09:00)
[2016-11-12] MEDS ORDERED: BISACODYL 10 MG SUPP PR PRN (10:30)
[2016-11-12] MEDS ORDERED: SOD PHOSPHATE/SOD BIPHOSPHATE ENEMA 132 ML BTL PR PRN (10:30)
--- NOTE | 2016-11-12 10:34 | Progress Note ---
Subjective Date of Service: Nov 12, 2016. Subjective Pt evaluation today including: conversation w/ patient, conversation w/ family , physical exam, chart review, lab review, review of studies, conversation w/ executive talent acquisition consultant, review of inpatient medication list Report has constipation, no bowel movement since admission for total 3 days, Left shoulder pain after the fall prior to admission, reported to left thumb bluish as well, bun the left shoulder pain and left thumb pain /bluish is improving Problem List Medical Problems: (1) Ankle fracture Status: Acute Review of Systems Constitutional: + fatigue, + weakness, No chills, No fever, No problem reported , No sweats, No weight loss Eyes: No diplopia, No discharge, No eye pain, No redness, No worsening of vision ENT: No dental problems, No hearing loss, No nasal symptoms, No sore throat, No tinnitus, No trouble swallowing, No unusual epistaxis Respiratory: No cough, No dyspnea at rest, No dyspnea on exertion, No hemoptysis, No shortness of breath, No sputum, No wheezing Cardiac: No PND, No chest pain, No claudication, No edema, No orthopnea, No palpitations Abdomen: No constipation, No diarrhea, No nausea, No pain, No vomiting Musculoskeletal: + joint pain (right knee pain, left shoulder pain and left thumb pain), No calf pain, No muscle pain, No swelling Female : No abnormal vaginal bleeding, No dysuria, No hematuria, No incontinence, No urinary frequency, No vaginal discharge Neurologic: No balance problems, No memory loss, No numbness/tingling, No paralysis, No vertigo, No weakness Psychiatric: No anhedonism, No anxiety, No depression symptoms, No insomnia, No substance abuse Heme: No abnormal bleeding/bruising, No clotting problems, No night sweats, No swollen lymph nodes Endo: No excessive thirst, No excessive urination, No fatigue Skin: No bleeding, No color change, No itch, No new/changing skin lesions, No rash Objective Vital Signs Date Time Temp Pulse Resp B/P Pulse Ox O2 Delivery O2 Flow Rate FiO2 11/12/16 07:22 36.7 78 18 135/62 96 Room Air 11/12/16 07:15 Room Air 11/11/16 23:15 Room Air 11/11/16 22:59 37.0 78 16 116/61 96 Room Air 11/11/16 15:51 Room Air 11/11/16 15:01 36.8 76 16 137/79 96 Room Air 11/11/16 11:18 36.8 80 16 120/55 97 Room Air Physical Exam General Appearance: WD/WN, no apparent distress, + obese Eyes: normal inspection, PERRL, EOMI, sclerae normal ENT: normal ENT inspection, hearing grossly normal, pharynx normal Neck: supple, no adenopathy, thyroid normal, no JVD, no carotid bruits, trachea midline Respiratory/Chest: chest non-tender, lungs clear, normal breath sounds, no respiratory distress, no accessory muscle use Cardiovascular: regular rate, rhythm, no edema, no gallop, no JVD, no murmur Abdomen: normal bowel sounds, non tender, soft, no organomegaly, no pulsatile mass Extremities: non-tender, normal inspection, no pedal edema, no calf tenderness , normal capillary refill, pelvis stable, + pertinent finding (left shoulder mild pain when doing the range of motion in different ejection, no local skin bluish or tender or deformity left thumb has some bluish, but local palpitation has no any tender, no limited range of motion) Neurologic/Psychiatric: crime scene technician II-XII nml as tested, no motor/sensory deficits, alert, normal mood/affect, oriented x 3 Skin: normal color, warm/dry, no rash Lymphatic: no adenopathy Laboratory Results Last 24 Hours Test 11/11/16 11:48 11/11/16 16:58 11/11/16 20:40 11/12/16 05:26 Bedside Glucose 207 mg/dl 169 mg/dl 172 mg/dl White Blood Count 8.31 K/uL Red Blood Count 3.87 M/uL Hemoglobin 11.3 g/dL Hematocrit 33.4 % Mean Corpuscular Volume 86.3 fL Mean Corpuscular Hemoglobin 29.2 pg Mean Corpuscular Hemoglobin Concent 33.8 g/dl RDW Standard Deviation 42.2 fL RDW Coefficient of Variation 13.4 % Platelet Count 196 K/uL Mean Platelet Volume 9.7 fL Prothrombin Time 11.8 SECONDS Prothromb Time International Ratio 1.1 Sodium Level 140 mmol/L Potassium Level 3.9 mmol/L Chloride Level 106 mmol/L Carbon Dioxide Level 23 mmol/L Anion Gap 11.0 mmol/L Blood Urea Nitrogen 13 mg/dl Creatinine 0.79 mg/dl Est Creatinine Clear Calc Drug Dose 79.6 ml/min Estimated GFR () 90.4 Estimated GFR (Non- 78.0 BUN/Creatinine Ratio 16.0 Random Glucose 160 mg/dl Calcium Level 8.5 mg/dl Test 11/12/16 07:48 Bedside Glucose 167 mg/dl Assessment and Plan 66 y/o female, with PMHx of HTN and DM, with bimalleolar right ankle fracture, was admitted to orthopedic service on 11/09/2016 Hospitalist was consulted by orthopedics for preop evaluation/medical management. Bimalleolar ankle fracture, with ORIF scheduled for 11/10: Postop day 2 - Pain management, DVT prophylaxis, and PT/OT will be as per primary team - Follow PRP and CBC - Leukocytosis of 15.02, likely secondary to ankle fracture. No s/s of infection. Continue to follow. - EKG unremarkable - CXR reviewed - U/A pending HTN: Stable - Continue Lisinopril 20 mg PO daily and HCTZ 25 mg PO daily- hold postop pending repeat PRP to assess kidney function. - Per patient, BP usually runs around ~120/80's - Add Hydralazine 10 mg IV PRN for SBP >170 or DBP >100, elevated BP likely secondary to pain/stress of fracture. Continue to monitor. Uncontrolled diabetic - Metformin and Glimepiride, was hold upon admission, will restart today - BSG ACHS - Sliding insulin scale - Last ha1c checked by PCP ~1-2 weeks, 9.0 , I told patient should follow-up with PCP Left shoulder pain and left thumb bluish after the fall, I checked possible muscle strain, there was only minimal pain in the range of motion in different directions, I don't believe she needs to have x-ray There was some pain and bluish in left thumb, I also believe is a strain, no limited range of motions, no obvious tender or no deformities: I don't believe need any x-ray I encouraged patient to talk to orthopedic if have any questions regard the above Constipation, we'll start Dulcolax for suppository, and fleet enema if needed DVT prophylaxis: - As per primary team Code Status: - LEVEL I, FULL Dispo: - Discharge as per primary team Continued [facility] stay due to: home environment unsafe for pt Discharge planning: home
[2016-11-12] MEDS ORDERED: BISACODYL 10 MG SUPP PR ONE (11:30)
[2016-11-12 15:05] VITALS: BP 151/67; PULSE 81; TEMP 36.6; O2SAT 97
[2016-11-12 17:13] VITALS: BP 151/67; PULSE 81; TEMP 36.6; O2SAT 97
[2016-11-13] MEDS ORDERED: BISACODYL 5 MG TABEC PO SCH (09:00)
--- NOTE | 2016-11-28 12:57 | DISCHARGE SUMMARY ---
DISCHARGE DIAGNOSIS: Displaced bimalleolar ankle fracture, right ankle. SECONDARY DIAGNOSES: Hypertension, diabetes mellitus type 2. CONSULTATIONS: Elin Patino PA-C/Danny Bee D.O. COMPLICATIONS: None. PROCEDURES: ORIF right ankle by Dr. Lagos on 11/10/2016. BRIEF HISTORY: As dictated in history and physical. HOSPITAL SUMMARY: The patient was admitted on the above noted date with the above noted ankle fracture. She was started on bed rest, pain control and immobilization. She was then taken to the operating room on the following day after being cleared medically for surgery by the Medicine service and the above noted procedure was performed, which she tolerated well. On her first postoperative day, she was feeling well and pain was controlled. Neurovascularly intact. Splint was clean, dry and intact. Toes were mobile and vital signs were stable. She was afebrile. Plans were for her to go to either a care home facility or [facility] pending insurance approval, and also depending on how well she did in PT. She was eventually approved for [facility] and by 11/12/2016 she was continuing to remain stable and it was felt she could be transferred to [facility] for further physical therapy and care. For further review, please see chart. LABORATORY AND X-RAY DATA: As per chart. DISCHARGE INSTRUCTIONS: The patient discharged to [facility] on 11/12/2016. DIET: Diabetic. ACTIVITY: Out of bed in chair, physical therapy, weightbearing status, nonweightbearing right lower extremity, occupational therapy as needed. Follow special care instructions that are listed and followup with Dr. Lagos in 2 weeks. The patient to call for appointment if one has not been made for you. DISCHARGE MEDICATIONS: Zofran 8 mg p.o. q. 8 hours p.r.n., oxycodone 5-10 mg p.o. q. 4 hours p.r.n., resume taking glimepiride 1 mg p.o. daily, hydrochlorothiazide 25 mg p.o. daily, lisinopril 20 mg p.o. daily, metformin 850 mg p.o. t.i.d. and aspirin 81 mg p.o. b.i.d. for 1 month, after 1 month resume once daily dosing.
== END 2016-11-12 19:30 | DRG 494 ==
LOC: ENRESERVTM → ENRESERVDT → EDBD 14:08 → C.EDD 14:09 → C.MSW 16:31
PROVIDERS: ADMIT Orthopaedic Surgery Sports Medicine; ATTEND Orthopaedic Surgery Sports Medicine
PROC: 0QSG04Z Reposition Right Tibia with Internal Fixation Device, Open Approach (ICD-10-PCS; principal; 2016-11-10 09:30)
PROC: 0QSJ04Z Reposition Right Fibula with Internal Fixation Device, Open Approach (ICD-10-PCS; principal; 2016-11-10 09:30)
DX: S82.841A Displaced bimalleolar fracture of right lower leg, initial encounter for closed fracture (principal); W10.9XXA Fall (on) (from) unspecified stairs and steps, initial encounter; I10 Essential (primary) hypertension; E11.9 Type 2 diabetes mellitus without complications; Z96.653 Presence of artificial knee joint, bilateral; Z87.440 Personal history of urinary (tract) infections; Z82.49 Family history of ischemic heart disease and other diseases of the circulatory system; Z79.82 Long term (current) use of aspirin; Z79.84 Long term (current) use of oral hypoglycemic drugs; Z79.899 Other long term (current) drug therapy

== ENCOUNTER → 2017-06-10 | Outpatient (CLI) | payer BC ==
[~2017-06-10] MED LIST changes: +ASPI81TA28 PO; -DTR5 PO; -GLC500 PO; +GLIM1TAB2 PO; -HYDC25 PO; +HYDR25TA4 PO; +LISI-725 PO; +METF-383 PO; +RXC5 PO
--- NOTE | 2017-06-10 15:33 | MAMMOGRAPHY REPORT ---
BILATERAL DIGITAL SCREENING MAMMOGRAM WITH CAD: 06/10/2017 CLINICAL HISTORY: Routine screening. Patient has no complaints. TECHNIQUE: Bilateral CC, XCCL and MLO views were obtained. Repeat MLO views were obtained to include more anterior compression. Current study was also evaluated with a Computer Aided Detection (CAD) s ystem. COMPARISON: Comparison is made to exams dated: 06/07/2016 mammogram, 06/06/2015 mammogram, 06/04/2014 m ammogram, 06/01/2013 mammogram, 05/29/2012 mammogram, and 05/18/2011 mammogram - [facility]ter. BREAST COMPOSITION: There are scattered areas of fibroglandular density in both breasts. FINDINGS: There is a stable grouping of punctate microcode calcifications in the 12:00 right breast. A 5 mm nodular asymmetry in the lateral right breast is stable dating back to at least 06/01/2013, t herefore likely benign. No new suspicious mass, architectural distortion or cluster of suspicious mi crocalcifications is seen. IMPRESSION: ACR BI-RADS CATEGORY 1: NEGATIVE There is no mammographic evidence of malignancy. A 1 year screening mammogram is recommended. The pa tient will receive written notification of the results. Approximately 10% of breast cancers are not detected with mammography. A negative mammographic report should not delay biopsy if a clinically suggestive mass is present. Chantell Goncalves M.D. ay/:06/10/2017 14:00:44 [employer] Maker: Winter BUENROSTRO(Sandip)(M), [facility] letter sent: Normal 1/2 BI-RADS Code: ACR BI-RADS Category 1: Negative
== END | disposition home or self-care (01) ==
LOC: C.MAMM 10:39
PROVIDERS: ATTEND Family Medicine
DX: Z12.31 Encounter for screening mammogram for malignant neoplasm of breast (principal)

== ENCOUNTER → 2018-01-09 | Outpatient (CLI) | payer OTHER ==
--- NOTE | 2018-01-09 17:57 | DIAGNOSTIC IMAGING REPORT ---
CT OF THE ABDOMEN AND PELVIS WITHOUT CONTRAST CLINICAL HISTORY: Dysuria. Left lower quadrant pain. Back pain. Hematuria. COMPARISON STUDY: No previous studies for comparison. TECHNIQUE: Axial images of the abdomen and pelvis were obtained without IV contrast. Images were reviewed in the axial, sagittal, and coronal planes. A dose lowering technique was utilized adhering to the principles of ALARA. FINDINGS: Lung bases are clear. There is fatty infiltration of the liver. Low attenuation bilateral adrenal nodules measure up to 1.4 cm. These reflect adenomas. There is no biliary ductal dilatation status post cholecystectomy. Evaluation of the abdomen and pelvis is suboptimal on this unenhanced exam. The right kidney is surgically absent. There is no abnormality within the right nephrectomy bed. A mildly enlarged portacaval lymph node measures 1.4 cm in short axis diameter. This is shown on axial image 78 of 209. There is no left hydronephrosis. There are are no ureteral or renal calculi. Sensitivity for detection of urothelial lesions is diminished on this unenhanced exam. The appendix is normal. There is no evidence for a bowel obstruction. There is no pelvic lymphadenopathy. No suspicious osseous lesions are present. IMPRESSION: 1. No acute process within the abdomen or pelvis on unenhanced exam. 2. No urinary calculi. 3. Status post right nephrectomy. No abnormality within the right nephrectomy bed. 4. Mildly enlarged portacaval lymph node. This is likely benign however a follow-up abdominal CT in 6 months to ensure stability is recommended. 5. Fatty liver. Electronically signed by: Boston Reyna M.D. 01/09/2018 5:55 PM Dictated Date/Time: 01/09/2018 5:44 PM
== END | disposition home or self-care (01) ==
LOC: C.CTS 17:29
PROVIDERS: ATTEND Physician Assistant
DX: R31.0 Gross hematuria (principal); R10.32 Left lower quadrant pain; M54.5 Low back pain; K76.0 Fatty (change of) liver, not elsewhere classified

== ENCOUNTER → 2018-01-28 | Outpatient (CLI) | payer OTHER | END | disposition home or self-care (01) | LOC: C.PATHSPEC 16:47 | PROVIDERS: ATTEND Urology | DX: R31.0 Gross hematuria (principal) ==

== ENCOUNTER → 2018-02-27 | Outpatient (CLI) | payer OTHER ==
[2018-02-27 13:08] LABS: ALBUMIN 3.7 gm/dl (3.4-5.0); ALKALINE PHOSPHATASE 177 U/L (45-117); ALT/SGPT 42 U/L (12-78); AST/SGOT 30 U/L (15-37); BLOOD UREA NITROGEN 20 mg/dl (7-18); CALCIUM 9.5 mg/dl (8.5-10.1); CARBON DIOXIDE 28 mmol/L (21-32); CREATININE 1.02 mg/dl (0.60-1.20); POTASSIUM 4.4 mmol/L (3.5-5.1); SODIUM 133 mmol/L (136-145); TOTAL PROTEIN 7.7 gm/dl (6.4-8.2)
[2018-02-27 13:26] LABS: GLUCOSE 355 mg/dl (70-99)
== END | disposition home or self-care (01) ==
LOC: C.LAB 10:54
PROVIDERS: ATTEND Urology
DX: R31.0 Gross hematuria (principal)

== ENCOUNTER → 2018-03-04 | Outpatient (CLI) | payer OTHER ==
[~2018-03-04] MED LIST changes: +OPTIRAY 320 IV PRN
--- NOTE | 2018-03-04 10:59 | DIAGNOSTIC IMAGING REPORT ---
CT UROGRAM CLINICAL HISTORY: Gross hematuria. COMPARISON STUDY: Abdominal CT dated 01/09/2018. TECHNIQUE: Before and following the IV administration of 95 cc of Optiray 320, CT urogram of the abdomen and pelvis is performed from the lung bases to the proximal femora. Images are reviewed in the axial, sagittal, and coronal planes. IV contrast was administered without complication. A dose lowering technique was utilized adhering to the principles of ALARA. CT DOSE: 3040.53 mGy.cm FINDINGS: Lung bases: The heart is normal in size and without pericardial effusion. The lung bases are clear. Liver: The contrast-enhanced liver is enlarged, measuring 19.7 cm in length. The liver demonstrates diffusely diminished attenuation consistent with severe hepatic steatosis. There is no intrahepatic biliary ductal dilatation. The hepatic veins and portal veins are patent. Gallbladder: Surgically absent noting clips in the gallbladder fossa. Spleen: Top normal in size and normal in attenuation. Pancreas: Moderately atrophic and grossly unremarkable. Adrenal glands: A 12 mm right adrenal nodule meets CT criteria for a fat-containing adenoma. The left adrenal gland is normal in appearance. Kidneys and ureters: The right kidney is not identified and presumed congenitally versus surgically absent. There is mild hypertrophy of the left kidney. There is fullness of the left renal collecting system without hydronephrosis, and a left-sided extrarenal pelvis is noted. There are no renal calculi in the left kidney identified on the unenhanced images. The left kidney enhances homogeneously and excretes normally. There is no enhancing renal cortical mass lesion identified. A small parapelvic cyst is noted in the left lower pole. There is no evidence of urothelial lesion within the left renal pelvis or along the course of the left ureter. Abdominal vasculature: The abdominal aorta is normal in course and caliber noting moderate atherosclerotic calcification. Bowel: There is mild to moderate colonic fecal retention. No bowel obstruction is seen. Scattered diverticula are noted in the right colon. There is no CT evidence of acute diverticulitis. The appendix is well-visualized and normal. Peritoneum: There is no intraperitoneal free air or abdominal ascites. Lymphadenopathy: A prominent portacaval node is unchanged and measures up to 1.7 cm in short axis. No pathologically enlarged lymph nodes identified in the abdomen or pelvis. Pelvic viscera: The bladder, uterus, and adnexa are normal as visualized. Skeletal structures: The Skeletal structures are osteopenic. Mild lumbosacral spondylosis is observed. No lytic or blastic lesions are seen. IMPRESSION: 1. The right kidney is not identified and presumed congenitally versus surgically absent. 2. Unremarkable assessment of the left kidney and renal collecting system. 3. The bladder is normal as visualized. 4. Hepatomegaly and severe hepatic steatosis. 5. A prominent portacaval lymph node is unchanged. This is of doubtful significance and likely related to hepatic steatosis. 6. Moderate colonic fecal retention. 7. Additional findings as above. Electronically signed by: Baudilio Fox M.D. 03/04/2018 10:58 AM Dictated Date/Time: 03/04/2018 10:47 AM
== END | disposition home or self-care (01) ==
LOC: C.CTS 10:08
PROVIDERS: ATTEND Urology
DX: R31.0 Gross hematuria (principal); R16.0 Hepatomegaly, not elsewhere classified; K76.0 Fatty (change of) liver, not elsewhere classified; R59.0 Localized enlarged lymph nodes; K59.00 Constipation, unspecified